=== PATIENT | female | born 1955 | race Caucasian/White ===

== ENCOUNTER 2016-06-13 07:47 | Day surgery (SDC) | payer MEDICARE ==
[~2016-06-13] VITALS: Ht 180.3 cm; Wt 122.9 kg
[~2016-06-13 07:47] MED LIST: 0.9% Sodium Chloride 1,000 ML IV SCH; BENA20TA PO; OMEP40CA36 PO; Sodium Chloride LOK Flush 10 mL Syringe IV PRN; fentaNYL-PF 50 mCg/mL 2 mL Inj IVPUSH PRN
[2016-06-13 07:58] VITALS: BP 137/71; PULSE 58; RESP 14; O2SAT 96
[2016-06-13] MEDS ORDERED: ASPI325T32 PO (08:09)
[2016-06-13 08:54] VITALS: BP 153/85; PULSE 66; RESP 14; O2SAT 96
[2016-06-13 09:04] VITALS: BP 137/83; PULSE 67; RESP 16; O2SAT 94
[2016-06-13 09:14] VITALS: BP 144/70; PULSE 62; RESP 16; O2SAT 92
--- NOTE | 2016-06-13 10:41 | ENDO ---
[address] [address] ENDOSCOPY PROCEDURE PATIENT: LUCY SOFIA : 1955 MR#: [id number] ADMIT: 06/13/2016 JOB ID: [id number] DATE: 06/13/2016 PROCEDURE: Esophagogastroduodenoscopy. 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 The patient's ASA classification is 2. Mallampati score is 2. MEDICATIONS: 1. Versed 5 mg. 2. Fentanyl 100 mcg. INSTRUMENT USED: GIF H 180 J. PROCEDURE DETAILS: After informed consent was obtained, the patient was brought into the GI suite where she was placed on oxygen via nasal cannula and monitored with continuous pulse oximeter, telemetry and blood pressure monitoring. A time-out was performed. Then, she was placed in the left lateral decubitus position and a bite block was placed. Medications were then administered for sedation. The standard EGD scope was inserted through the bite block and advanced under direct visualization to the second portion of duodenum without difficulty. FINDINGS: 1. Normal appearing duodenal bulb, first and second portion. Bile stained mucosa was noted throughout. 2. Normal appearing pylorus. 3. In the proximal antrum and body of the stomach, the mucosa had a mosaic appearance. 4. Multiple random biopsies were obtained in the antrum and body of the stomach. 5. Retroflexed views in the gastric body revealed a normal-appearing cardia and fundus. 6. The GE junction was at approximately 45 cm and the squamocolumnar junction was at 42 cm. At the squamocolumnar junction, there were slight breaks in the Z-line. Biopsies were taken. The remainder of the esophagus otherwise appeared unremarkable. IMPRESSION: 1. Gastropathy as she had a mosaic appearance to the body of the stomach and proximal portion of the antrum. 2. Slightly irregular gastroesophageal junction. RECOMMENDATIONS: 1. Continue PPI daily. 2. Await biopsy results. 3. Followup in GI clinic. COMPLICATIONS: None. ESTIMATED BLOOD LOSS: Less than 5 mL.
--- NOTE | 2016-06-14 13:12 | PATH ---
SURGICAL PATHOLOGY Attending Physician:Dashawn Daniel CASE STATUS: Signed Out PATIENT NAME: LUCY SOFIA PID: [id number] : 1955 DATE COLLECTED:06/13/2016 16:19 SPECIMEN: 1: Gastric, Biopsy 2: Esophagus, Biopsy CLINICAL HISTORY: 1). GASTRIC BIOPSY 2). 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 Immunohistochemistry for Helicobacter pending, to be reported by addendum. Negative for intestinal metaplasia. Negative for dysplasia and malignancy. 2.DISTAL ESOPHAGUS BIOPSY: FRAGMENTS OF SQUAMOUS MUCOSA AND GASTRIC CARDIA-TYPE MUCOSA WITH CHRONIC ACTIVE INFLAMMATION AND REACTIVE EPITHELIAL CHANGES. Negative for specialized metaplasia of Ku' s esophagus. Negative for dysplasia and malignancy. Eosinophils are not increased. ICD10 CODE K29.70 GROSS DESCRIPTION: The specimen is received in two formalin filled containers labeled with the patient's name. 1). The specimen is sublabeled "gastric" and consists of a 0.2 x 0.1 x 0.1 CM portion of tissue which is entirely submitted in cassette 1A. 2). The specimen is sublabeled "distal esophagus" and consists of 3 portions of tissue which aggregate to 0.3 x 0.3 x 0.2 CM. The specimen is entirely submitted in cassette 2A. 06/13/2016 [facility] MICRO DESCRIPTION: See diagnosis. ICD-9 CODES: CPT CODES: 1: 62422, 42490 2: 30568 PROCEDURE/ADDENDA: Immunohistochemistry SPI Interpretation {Not Entered} Results-Comments Immunohistochemistry Results 1. Gastric Biopsy: Negative for Helicobacter pylori by immunohistochemistry. This test was developed and its performance characteristics determined by [facility]. It has not been cleared or approved by the [place]. Food and Drug Administration. The FDA has determined that such clearance or approval is not necessary. This test is used for clinical purposes. It should not be regarded as investigational or for research. Electronically Signed Out Nathaniel Mcallister MD Electronically Signed Out Nathaniel Mcallister MD [facility], [place] [address] Technical component performed at [facility], [facility] [address], [place], [address]
== END 2016-06-13 23:59 | disposition home or self-care (01) ==
LOC: END 07:47
PROVIDERS: ATTEND Internal Medicine Gastroenterology
DX: K22.70 Barrett's esophagus without dysplasia (principal); K29.50 Unspecified chronic gastritis without bleeding; I10 Essential (primary) hypertension; G47.33 Obstructive sleep apnea (adult) (pediatric); G47.61 Periodic limb movement disorder
CPT/HCPCS: 43239; 88305; 88342; G0500; J2250; J3010; J7030